=== PATIENT | male | born 1975 ===

== ENCOUNTER 2018-09-26 23:03 | Emergency (ER) | payer SELFPAY ==
[2018-09-26 23:13] VITALS: RESP 18; O2SAT 99
--- NOTE | 2018-09-26 23:59 | ED PDOC ---
HPI: Chest Pain Time Seen by Provider: 09/26/18 23:41 Chief Complaint (Nursing): Chest Pain History Per: Mathematics Faculty Member (Deb [id number]) History/Exam Limitations: no limitations Onset/Duration Of Symptoms: Days Current Symptoms Are (Timing): Still Present Quality: Tightness Exacerbating Factors: Turning Additional Complaint(s): 43 year old with no PMHx presenting with chest pain. States it's L sided, constant pain that is worsened by twisting or turning. States he also has bilateral upper back pain and tension headache. Denies vision changes, numbness, weakness, sweats. States he also has some difficulty taking a deep breath because of the pain. Denies fevers, cough. Has not seen a PMD in 4 years, has no PMD. PMD: Does not have one Past Medical History Reviewed: Historical Data, Nursing Documentation, Vital Signs Vital Signs: Last Vital Signs Temp 97.5 F L 09/26/18 23:08 Pulse 80 09/26/18 23:08 Resp 18 09/26/18 23:08 BP 187/110 H 09/26/18 23:08 Pulse Ox 99 09/26/18 23:08 - Medical History PMH: Kidney Stones - Family History Family History: States: Stroke Other Family History: "Tachycardia" in father - Home Medications Home Medications: Ambulatory Orders Medication Instructions Recorded Cyclobenzaprine [Cyclobenzaprine 10 mg PO BID #15 tab 09/27/18 HCl] Naproxen [Naprosyn] 500 mg PO BID #30 tablet 09/27/18 hydroCHLOROthiazide [Hydrodiuril] 25 mg PO DAILY #30 tab 09/27/18 - Allergies Allergies/Adverse Reactions: Allergies Allergy/AdvReac Type Severity Reaction Status Date / Time No Known Allergies Allergy Verified 09/26/18 23:08 CASANDRA Risk Score for UA/NSTEMI - CASANDRA Risk Score Age > 64: NO 3 or more CAD Risk Factors: NO Known CAD (Stenosis greater than 50%): NO Aspirin use in past 7 days: NO Severe Angina: NO EKG ST changes greater than 0.5mm: NO Positive Cardiac Marker: NO CASANDRA Score: 0 Risk %: 5% Review of Systems ROS Statement: Except As Marked, All Systems Reviewed And Found Negative Cardiovascular: Positive for: Chest Pain Respiratory: Negative for: Cough Musculoskeletal: Positive for: Back Pain Physical Exam - Reviewed Nursing Documentation Reviewed: Yes Vital Signs Reviewed: Yes - Physical Exam Appears: Positive for: Well, Non-toxic, No Acute Distress Head Exam: Positive for: ATRAUMATIC, NORMAL INSPECTION, NORMOCEPHALIC Skin: Positive for: Normal Color, Warm, DRY Eye Exam: Positive for: EOMI, Normal appearance, PERRL ENT: Positive for: Normal ENT Inspection Neck: Positive for: Normal, Painless ROM Cardiovascular/Chest: Positive for: Regular Rate, Rhythm. Negative for: Chest Non Tender (Tenderness to palpation of chest wall) Respiratory: Positive for: CNT, Normal Breath Sounds Gastrointestinal/Abdominal: Positive for: Normal Exam, Soft Back: Positive for: Normal Inspection Extremity: Positive for: Normal ROM Neurological/Psych: Positive for: Awake, Alert, Normal Tone - Laboratory Results Result Diagrams: 09/27/18 00:15 09/27/18 00:15 - ECG O2 Sat by Pulse Oximetry: 99 Pulse Ox Interpretation: Normal Medical Decision Making Medical Decision Makin43 year old M with chest pain, back pain --Very well appearing, vitals improving spontaneously, BP 142/100 --Will check labs, EKG, CXR --Symptomatic treatment 2AM --Patient is feeling better, EKG is normal, no ST/T wave changes, no TWI, HR 88 --CXR is normal, read by me --BP is 148/100, advised patient that he should start taking HCTZ, advised him to followup with clinic in one week --Very well appearing upon discharge Disposition - Clinical Impression Clinical Impression: Atypical chest pain - Patient ED Disposition Is Patient to be Admitted: No - Disposition Referrals: [facility] [Outside] Disposition: Routine/Home Disposition Time: 02:09 Condition: IMPROVED Prescriptions: Cyclobenzaprine [Cyclobenzaprine HCl] 10 mg PO BID #15 tab hydroCHLOROthiazide [Hydrodiuril] 25 mg PO DAILY #30 tab Naproxen [Naprosyn] 500 mg PO BID #30 tablet Instructions: Chest Pain That Is Not Caused by the Heart (DC) Forms: nodila (Telugu) Print Language: GUINEAN
[2018-09-27 00:29] LABS: HEMOGLOBIN 15.2 g/dL (12.0-18.0); MEAN CELL VOLUME 89.5 fl (80.0-94.0); MEAN CORPUSCULAR HEMOGLOBIN 30.8 pg (27.0-31.0); MEAN CORPUSCULAR HGB CONC 34.4 g/dL (33.0-37.0); RBC 4.94 Mil/uL (4.40-5.90); RED CELL DISTRIBUTION WIDTH 13.3 % (11.5-14.5); WHITE BLOOD COUNT 7.7 K/uL (4.8-10.8)
[2018-09-27 00:39] LABS: BLOOD UREA NITROGEN 21 mg/dl (9-20); CALCIUM 9.5 mg/dL (8.4-10.2); GFR NON-AFRICAN AMERICAN > 60
[2018-09-27 02:21] VITALS: BP 143/98; PULSE 81; TEMP 98.1
--- NOTE | 2018-09-27 13:34 | RAD ---
Date of service: 09/26/2018 HISTORY: Chest pain COMPARISON: No prior. TECHNIQUE: Chest PA and lateral views FINDINGS: LUNGS: No active pulmonary disease. PLEURA: No significant pleural effusion identified. No pneumothorax apparent. CARDIOVASCULAR: No aortic atherosclerotic calcification present. Normal cardiac size. No pulmonary vascular congestion. OSSEOUS STRUCTURES: Minor multilevel degenerative spondylosis of the thoracic spine VISUALIZED UPPER ABDOMEN: Normal. OTHER FINDINGS: None. IMPRESSION: No active disease.
--- NOTE | 2018-09-27 18:41 | CARD ---
APPROVED REPORT Date of service: 09/26/2018 EKG Measurement Heart [id number] OR [id number] [id number] <Conclusion> Normal sinus rhythm Normal ECG
== END 2018-09-27 02:21 | disposition home or self-care (01) ==
LOC: H.ER 23:03
DX: R07.89 Other chest pain (principal)